=== PATIENT | female | born 1955 | race Caucasian/White ===

== ENCOUNTER 2017-10-02 18:11 | Emergency (ER) | payer MEDICARE ==
--- NOTE | 2017-10-02 18:28 | EKG REPORT ---
SEVERITY:- ABNORMAL ECG - SINUS OR ECTOPIC ATRIAL RHYTHM MULTIPLE VENTRICULAR PREMATURE COMPLEXES : Confirmed by: Jordan Benavidez MD 02-Oct-2017 18:28:15
--- NOTE | 2017-10-02 19:25 | ER Document Report ---
ED Medical Screen (RME) - General Chief Complaint: Arrhythmia Stated Complaint: HEARTRATE ISSUES Time Seen by Provider: 10/02/17 19:04 Notes: RAPID MEDICAL EVALUATION DISCLOSURE I have seen this patient as part of a Rapid Medical Evaluation and, if applicable, placed any initially appropriate orders. The patient will be seen and fully evaluated, including a full history and physical exam, by a provider ( in Main ED or Fast Track) when a room becomes available. 62-year-old female here with complaints of chest heaviness lightheadedness back pain as well as diaphoresis shortness of breath that started just prior to arrival while she was in [facility]. She has a history of atrial fibrillation and Has these symptoms when her A. fib is acting up. She did take 2 tablets of full strength aspirin earlier today. EXAM CTAB RRR - Related Data Allergies/Adverse Reactions: acetaminophen [From Tylenol] Allergy (Verified 10/02/17 19:15) gabapentin [From Neurontin] Allergy (Verified 10/02/17 19:15) pregabalin [From Lyrica] Allergy (Verified 10/02/17 19:15) Sulfa (Sulfonamide Antibiotics) Allergy (Verified 10/02/17 19:15) tetracycline Allergy (Verified 10/02/17 19:15) indomethacin [From Indocin] Adverse Reaction (Verified 10/02/17 19:15) sulfa Allergy (Uncoded 10/02/17 19:15) Past Medical History - Social History Chew tobacco use (# tins/day): No Frequency of alcohol use: None Drug Abuse: None Renal/ Medical History: Denies: Hx Peritoneal Dialysis Physical Exam - Vital signs Vitals: Temp Pulse Resp BP Pulse Ox 97.8 F 70 16 127/91 H 100 10/02/17 18:30 10/02/17 18:30 10/02/17 18:30 10/02/17 18:30 10/02/17 18:30 Course - Vital Signs Vital signs: Temp Pulse Resp BP Pulse Ox 97.8 F 70 16 127/91 H 100 10/02/17 18:30 10/02/17 18:30 10/02/17 18:30 10/02/17 18:30 10/02/17 18:30
--- NOTE | 2017-10-02 20:02 | RADIOLOGY REPORT (SQ) ---
EXAM DESCRIPTION: CHEST 2 VIEWS COMPLETED DATE/TIME: 10/02/2017 7:54 pm REASON FOR STUDY: CP SOB COMPARISON: 2008 EXAM PARAMETERS: NUMBER OF VIEWS: two views TECHNIQUE: Digital Frontal and Lateral radiographic views of the chest acquired. RADIATION DOSE: NA LIMITATIONS: none FINDINGS: LUNGS AND PLEURA: No opacities, masses or pneumothorax. No pleural effusion. MEDIASTINUM AND HILAR STRUCTURES: No masses or contour abnormalities. HEART AND VASCULAR STRUCTURES: Heart normal size. No evidence for failure. BONES: No acute findings. HARDWARE: None in the chest. OTHER: No other significant finding. IMPRESSION: NO ACUTE RADIOGRAPHIC FINDING IN THE CHEST. TECHNICAL DOCUMENTATION: JOB ID: [id number] [employer]- All Rights Reserved Reading location - IP/workstation name: [email or web address]
[2017-10-02 20:16] LABS: ABSOLUTE EOSINOPHILS # (AUTO) 0.1 10^3/uL (0.0-0.6); ABSOLUTE LYMPHOCYTES (AUTO) 1.3 10^3/uL (0.5-4.7); ABSOLUTE MONOCYTES (AUTO) 0.6 10^3/uL (0.1-1.4); ABSOLUTE NEUT (AUTO) 6.2 10^3/uL (1.7-8.2); BASOPHILS % (AUTO) 0.4 % (0-2); EOSINOPHILS % (AUTO) 1.6 % (0-6); HEMATOCRIT 49.7 % (36.0-47.0); HEMOGLOBIN 16.5 g/dL (12.0-15.5); LYMPHOCYTES % (AUTO) 15.7 % (13-45); MEAN CORPUSCULAR HEMOGLOBIN 31.3 pg (27.0-33.4); MEAN CORPUSCULAR HGB CONC 33.3 g/dL (32.0-36.0); MEAN CORPUSCULAR VOLUME 94 fl (80-97); PLATELET COUNT 469 10^3/uL (150-450); RED BLOOD COUNT 5.28 10^6/uL (3.72-5.28); RED CELL DISTRIBUTION WIDTH 14.5 % (11.5-14.0); SEGMENTED NEUTROPHILS % (AUTO) 75.3 % (42-78); TOTAL CELLS COUNTED % (AUTO) 100 %; WHITE BLOOD COUNT 8.2 10^3/uL (4.0-10.5)
[2017-10-02 20:32] LABS: ANION GAP 11 (5-19); BLOOD UREA NITROGEN 12 mg/dL (7-20); CARBON DIOXIDE 30 mmol/L (22-30); CHLORIDE 104 mmol/L (98-107); GLUCOSE 137 mg/dL (75-110); PHOSPHORUS 3.8 mg/dL (2.5-4.5); POTASSIUM 4.5 mmol/L (3.6-5.0); SODIUM 145.3 mmol/L (137-145)
--- NOTE | 2017-10-02 20:32 | ER Document Report ---
ED Cardiac - General Chief Complaint: Arrhythmia Stated Complaint: HEARTRATE ISSUES Time Seen by Provider: 10/02/17 19:04 Notes: 6 patient is a 62-year-old female who comes emergency department for chief complaint of an episode that happened at 5 PM where she suddenly broke out into a sweat, felt pain wrapping around from her lower chest to her back, she felt like her heart was racing, she states that symptoms lasted for almost 20 minutes before resolving. She took 2 full dose aspirins this afternoon/prior to arrival. She states since that episode she has not had any repeat symptoms. She denies shortness of breath, nausea vomiting, fever or chills. She is visiting here from [place], came down 1 week ago. She has a history of atrial fibrillation, takes Cardizem 180 mg and Tikosyn, she does not take aspirin or blood thinner. She also reports history of REUBEN. She denies history of [place], smoking, PE. She denies lower extremity swelling. - Related Data Allergies/Adverse Reactions: acetaminophen [From Tylenol] Allergy (Verified 10/02/17 19:15) gabapentin [From Neurontin] Allergy (Verified 10/02/17 19:15) pregabalin [From Lyrica] Allergy (Verified 10/02/17 19:15) Sulfa (Sulfonamide Antibiotics) Allergy (Verified 10/02/17 19:15) tetracycline Allergy (Verified 10/02/17 19:15) indomethacin [From Indocin] Adverse Reaction (Verified 10/02/17 19:15) sulfa Allergy (Uncoded 10/02/17 19:15) Past Medical History - General Information source: Patient - Social History Smoking Status: Never Smoker Chew tobacco use (# tins/day): No Frequency of alcohol use: None Drug Abuse: None Lives with: Family Family History: Reviewed & Not Pertinent Patient has suicidal ideation: No Patient has homicidal ideation: No - Past Medical History Cardiac Medical History: Reports: Hx Atrial Fibrillation Renal/ Medical History: Denies: Hx Peritoneal Dialysis GI Medical History: Reports: Hx Gastroesophageal Reflux Disease - Immunizations Immunizations up to date: Yes Hx Diphtheria, Pertussis, Tetanus Vaccination: Yes Review of Systems - Review of Systems Constitutional: No symptoms reported EENT: No symptoms reported Cardiovascular: See HPI Respiratory: No symptoms reported Gastrointestinal: No symptoms reported Genitourinary: No symptoms reported Female Genitourinary: No symptoms reported Musculoskeletal: No symptoms reported Skin: No symptoms reported Hematologic/Lymphatic: No symptoms reported Neurological/Psychological: No symptoms reported Physical Exam - Vital signs Vitals: Temp Pulse Resp BP Pulse Ox 97.8 F 70 16 127/91 H 100 10/02/17 18:30 10/02/17 18:30 10/02/17 18:30 10/02/17 18:30 10/02/17 18:30 Interpretation: Normal - General General appearance: Appears well, Alert In distress: None - HEENT Head: Normocephalic, Atraumatic Eyes: Normal Extraocular movements intact: Yes Eyelashes: Normal Pupils: PERRL Mouth/Lips: Normal Mucous membranes: Normal Pharynx: Normal Neck: Normal - Respiratory Respiratory status: No respiratory distress Chest status: Nontender Breath sounds: Normal. No: Decreased air movement, Wheezing Chest palpation: Normal - Cardiovascular Rhythm: Regular, Extrasystoles. No: Irregularly irregular, Tachycardia Heart sounds: Normal auscultation, S1 appreciated, S2 appreciated Murmur: No Normal capillary refill: Yes - Abdominal Inspection: Normal Distension: No distension Bowel sounds: Normal Tenderness: Nontender Organomegaly: No organomegaly - Back Back: Normal, Nontender - Extremities General upper extremity: Normal inspection, Nontender, Normal color, Normal ROM , Normal temperature General lower extremity: Normal inspection, Nontender, Normal color, Normal ROM , Normal temperature, Normal weight bearing. No: Zahida's sign - Neurological Neuro grossly intact: Yes Cognition: Normal Orientation: AAOx4 Lam Coma Scale Eye Opening: Spontaneous Lam Coma Scale Verbal: Oriented [place] Coma Scale Motor: Obeys Commands [place] Coma Scale Total: 15 Speech: Normal Motor strength normal: LUE, RUE, LLE, RLE Sensory: Normal - Psychological Associated symptoms: Normal affect, Normal mood - Skin Skin Temperature: Warm Skin Moisture: Dry Skin Color: Normal Course - Re-evaluation Re-evalutation: On auscultation I hear sinus rhythm with extra systoles, patient placed on monitor, this shows sinus rhythm with multiple PVCs. EKG shows sinus rhythm at a rate of 73, multiple PVCs, no T-wave inversions or ST segment changes in consecutive leads, no comparison EKG. chest x-ray is unremarkable. CBC nonspecific, chemistry unremarkable, magnesium and TSH are unremarkable, initial troponin is negative. Patient with no change on monitoring on multiple re-evaluations. Troponin cycled and is still negative. Urine shows a few white blood cells but patient has no dysuria or urinary symptoms. Culture placed. Discussed with patient, she states she just had a stress test within the past 2 weeks which was negative, she has had episodes like today multiple times before although his wound was slightly longer and she became concerned. She is requesting discharge, states she has cardiology follow-up, they are planning to do an ablation. Discussed with Dr. Raymond. Patient will be discharged with close follow-up and strict return precautions. Patient states satisfaction and agreement. - Vital Signs Vital signs: Temp Pulse Resp BP Pulse Ox 98.3 F 70 18 121/78 96 10/03/17 01:02 10/02/17 18:30 10/03/17 00:53 10/03/17 00:54 10/03/17 00:53 - Laboratory Result Diagrams: 10/02/17 20:00 10/02/17 20:00 Laboratory results interpreted by me: 10/02/17 10/02/17 10/02/17 20:00 20:00 21:37 Hgb 16.5 H Hct 49.7 H RDW 14.5 H Plt Count 469 H Sodium 145.3 H Glucose 137 H Magnesium 2.4 H Urine Urobilinogen 2.0 H Ur Leukocyte Esterase SMALL H Discharge - Discharge Clinical Impression: Palpitations Chest pain Qualifiers: Chest pain type: unspecified Qualified Code(s): R07.9 - Chest pain, unspecified Condition: Stable Disposition: HOME, SELF-CARE Additional Instructions: Your workup tonight does not show any concerning abnormalities. Please follow-up closely with your provider and your bed rubber for additional evaluation and management. Return if you worsen including returned chest pain, passing out, or any other concerning symptoms.
[2017-10-02 20:45] LABS: NT PRO BNP 170 pg/mL (5-900)
[2017-10-02 20:49] LABS: TROPONIN I < 0.012 ng/mL
[2017-10-02 22:20] LABS: APPEARANCE,URINE SLIGHTLY-CLOUDY; BILIRUBIN,URINE NEGATIVE (NEGATIVE); CALCIUM OXALATE CRYSTALS,URINE MANY /HPF; COLOR,URINE YELLOW; GLUCOSE, URINE NEGATIVE (NEGATIVE); KETONES,URINE NEGATIVE (NEGATIVE); LEUKOCYTE ESTERASE,URINE SMALL (NEGATIVE); NITRITE,URINE NEGATIVE (NEGATIVE); PROTEIN,URINE NEGATIVE (NEGATIVE); URINE SPECIFIC GRAVITY 1.024
[2017-10-03] MEDS ORDERED: DILTIAZEM HCL 180 MG CAPSULE.CR PO ONE (00:49)
[2017-10-03 01:05] VITALS: BP 121/78
== END 2017-10-03 01:05 | disposition home or self-care (01) ==
LOC: ER 18:11
DX: R00.2 Palpitations (principal); I49.3 Ventricular premature depolarization; R07.9 Chest pain, unspecified; R61 Generalized hyperhidrosis; M54.9 Dorsalgia, unspecified; Z88.6 Allergy status to analgesic agent; Z88.2 Allergy status to sulfonamides; Z88.1 Allergy status to other antibiotic agents
CPT/HCPCS: 36415; 71046; 80048; 81001; 83735; 83880; 84100; 84443; 84484; 85025; 87086; 93005; 93010; 99285